=== PATIENT | female | born 1980 | race Caucasian/White ===

== ENCOUNTER 2016-10-26 12:59 | Emergency (ER) | payer OTHER | END 2016-10-26 13:48 | disposition left against medical advice (07) | LOC: DL.ED 12:59 | DX: Z53.21 Procedure and treatment not carried out due to patient leaving prior to being seen by health care provider (principal) ==

== ENCOUNTER 2016-12-30 21:57 | Emergency (ER) | payer OTHER ==
[2016-12-30] MEDS ORDERED: Acetaminophen/HYDROcodone 325-10 MG Tab PO ONE (21:58)
[2016-12-30] MEDS ORDERED: Sodium Chloride 0.9% 1,000 ML IV ONE (22:35)
[2016-12-30] MEDS ORDERED: Ondansetron 4 MG/2 ML SDV IV ONE (22:35)
[2016-12-30] MEDS ORDERED: HYDROmorphone 1 MG/ML Syringe IVPUSH ONE (22:35)
[2016-12-30] MEDS ORDERED: Iopamidol 612 MG/ML 100 ML Bottle IVPUSH ONE (22:37)
--- NOTE | 2016-12-30 22:42 | EDM.PDOC ---
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 Has known cyst since october, pamprin and ibuprofen have usually controlled pain, Pain since 3pm intolerable. Appointment to see Dr. Villagomez on Saturday. Right Lower Abdomen Pain Score (Numeric/FACES): 10 - Related Data Allergies Allergy/AdvReac Type Severity Reaction Status Date / Time honey Allergy Hives Verified 12/30/16 22:02 venom-honey bee Allergy Swelling Verified 12/30/16 22:02 [bee venom (honey bee)] canteloupe Allergy Itching Uncoded 12/30/16 22:02 Home Meds: Home Meds Amitriptyline [Elavil] 25 mg PO BEDTIME 12/30/16 [History] Escitalopram [Lexapro] 20 mg PO DAILY 12/30/16 [History] Past Medical History HEENT History: Reports: None Cardiovascular History: Reports: None Respiratory History: Reports: None Gastrointestinal History: Reports: Other (See Below) Other Gastrointestinal History: "fatty liver" Genitourinary History: Reports: Renal Calculus RIPRAP PLACER History: Reports: Polycystic Ovaries, Musculoskeletal History: Reports: Other (See Below) Other Musculoskeletal History: laceration to left foot with sutures Neurological History: Reports: None Psychiatric History: Reports: Anxiety Endocrine/Metabolic History: Reports: None Hematologic History: Reports: None Immunologic History: Reports: None Oncologic (Cancer) History: Reports: None Dermatologic History: Reports: None - Infectious Disease History Infectious Disease History: Reports: None - Past Surgical History Female Surgical History: Reports: Other (See Below) Social & Family History - Family History Family Medical History: Noncontributory - Tobacco Use Smoking Status *Q: Heavy Tobacco Smoker Years of Tobacco use: 10 Packs/Tins Daily: 1 Used Tobacco, but Quit: Yes Month Tobacco Last Used: october Second Hand Smoke Exposure: Yes - Caffeine Use Caffeine Use: Reports: Coffee, Soda - Alcohol Use Days Per Week of Alcohol Use: 0 - Recreational Drug Use Recreational Drug Use: No - Living Situation & Occupation Living situation: Reports: Single, with Family Occupation: Employed ED ROS GENERAL - Review of Systems Review Of Systems: ROS reveals no pertinent complaints other than HPI. ED EXAM, RENAL/ - Physical Exam Exam: See Below Exam Limited By: No Limitations General Appearance: Alert, Moderate Distress, Obese Eye Exam: Bilateral Eye: EOMI Ears: Normal External Exam Nose: Normal Inspection Throat/Mouth: Normal Inspection Head: Atraumatic, Normocephalic Neck: Normal Inspection, Full Range of Motion Respiratory/Chest: No Respiratory Distress, Lungs Clear, Normal Breath Sounds Cardiovascular: Normal Peripheral Pulses, Regular Rate, Rhythm GI/Abdominal: Soft, Guarding, Tender (RLQ), Abnormal Bowel Sounds (hypoactive). No: Distended Neurological: Alert, Oriented Psychiatric: Normal Affect Skin Exam: Warm, Dry, Intact, Normal Color Course - Vital Signs Last Recorded V/S: Last Vital Signs Temp 97 F 12/30/16 22:03 Pulse 85 12/30/16 23:30 Resp 16 12/30/16 23:30 BP 115/71 12/30/16 23:30 Pulse Ox 100 12/30/16 23:30 - Orders/Labs/Meds Labs: Laboratory Tests 12/30/16 12/30/16 12/30/16 Range/Units 22:33 22:33 22:52 WBC 9.8 (5.0-10.0) 10^3/uL RBC 4.61 (4.2-5.4) 10^6/uL Hgb 13.9 (12.0-16.0) g/dL Hct 42.2 (37.0-47.0) % MCV 91.5 (80-100) fL MCH 30.2 (27.0-34.0) pg MCHC 32.9 L (33.0-35.0) g/dL Plt Count 228 (150-450) 10^3/uL Neut % (Auto) 58.8 (42.2-75.2) % Lymph % (Auto) 26.6 (20.5-50.1) % Pepin % (Auto) 9.3 H (2-8) % Eos % (Auto) 4.8 H (1.0-3.0) % Baso % (Auto) 0.5 (0.0-1.0) % Sodium (135-145) mmol/L Potassium (3.6-5.0) mmol/L Chloride (101-111) mmol/L Carbon Dioxide (21.0-31.0) mmol/L Anion Gap BUN (7-18) mg/dL Creatinine (0.6-1.3) mg/dL Est Cr Clr Drug Dosing mL/min Estimated GFR (MDRD) BUN/Creatinine Ratio Glucose (74-105) mg/dL Calcium (8.4-10.2) mg/dl Total Bilirubin (0.2-1.0) mg/dL AST (10-42) IU/L ALT (10-60) IU/L Alkaline Phosphatase (42-121) IU/L Total Protein (6.7-8.2) g/dl Albumin (3.2-5.5) g/dl Globulin Albumin/Globulin Ratio Urine Color Yellow (YELLOW) Urine Appearance Clear (CLEAR) Urine pH 7.0 (5.0-9.0) Ur Specific [place] 1.015 (1.005-1.030) Urine Protein Negative (NEGATIVE) Urine Glucose (UA) Negative (NEGATIVE) Urine Ketones Negative (NEGATIVE) Urine Occult Blood Negative (NEGATIVE) Urine Nitrite Negative (NEGATIVE) Urine Bilirubin Negative (NEGATIVE) Urine Urobilinogen 0.2 (0.2-1.0) mg/dL Ur Leukocyte Esterase Negative (NEGATIVE) Urine RBC 0-5 /HPF Urine WBC 0-5 (0-5/HPF) /HPF Ur Epithelial Cells Few /HPF Urine Bacteria Occasional (0-FEW/HPF) /HPF Urine HCG, Qual Negative 12/30/16 Range/Units 22:52 WBC (5.0-10.0) 10^3/uL RBC (4.2-5.4) 10^6/uL Hgb (12.0-16.0) g/dL Hct (37.0-47.0) % MCV (80-100) fL MCH (27.0-34.0) pg MCHC (33.0-35.0) g/dL Plt Count (150-450) 10^3/uL Neut % (Auto) (42.2-75.2) % Lymph % (Auto) (20.5-50.1) % Pepin % (Auto) (2-8) % Eos % (Auto) (1.0-3.0) % Baso % (Auto) (0.0-1.0) % Sodium 137 (135-145) mmol/L Potassium 3.6 (3.6-5.0) mmol/L Chloride 103 (101-111) mmol/L Carbon Dioxide 26.0 (21.0-31.0) mmol/L Anion Gap 11.6 BUN 11 (7-18) mg/dL Creatinine 0.6 (0.6-1.3) mg/dL Est Cr Clr Drug Dosing 135.46 mL/min Estimated GFR (MDRD) > 60 BUN/Creatinine Ratio 18.33 Glucose 88 (74-105) mg/dL Calcium 8.8 (8.4-10.2) mg/dl Total Bilirubin 0.5 (0.2-1.0) mg/dL AST 20 (10-42) IU/L ALT 17 (10-60) IU/L Alkaline Phosphatase 54 (42-121) IU/L Total Protein 7.4 (6.7-8.2) g/dl Albumin 4.1 (3.2-5.5) g/dl Globulin 3.3 Albumin/Globulin Ratio 1.24 Urine Color (YELLOW) Urine Appearance (CLEAR) Urine pH (5.0-9.0) Ur Specific [place] (1.005-1.030) Urine Protein (NEGATIVE) Urine Glucose (UA) (NEGATIVE) Urine Ketones (NEGATIVE) Urine Occult Blood (NEGATIVE) Urine Nitrite (NEGATIVE) Urine Bilirubin (NEGATIVE) Urine Urobilinogen (0.2-1.0) mg/dL Ur Leukocyte Esterase (NEGATIVE) Urine RBC /HPF Urine WBC (0-5/HPF) /HPF Ur Epithelial Cells /HPF Urine Bacteria (0-FEW/HPF) /HPF Urine HCG, Qual Meds: Medications Discontinued Medications Generic Name Dose Route Start Last Admin Trade Name Freq PRN Reason Stop Dose Admin Hydrocodone Bitart/Acetaminophen Confirm 12/31/16 00:01 12/31/16 00:09 [place] 325-10 Mg Administered 12/31/16 00:02 Not Given Dose 2 tab .ROUTE .STK-MED ONE Hydrocodone Bitart/Acetaminophen 2 tab 12/30/16 21:58 [place] 325-10 Mg PO 12/30/16 21:59 .STK-MED ONE Hydromorphone HCl 1 mg 12/30/16 22:35 12/30/16 22:55 Dilaudid IVPUSH 12/30/16 22:36 1 mg ONETIME ONE Administration Sodium Chloride 1,000 mls @ 999 mls/hr 12/30/16 22:35 12/30/16 22:54 Normal Saline IV 12/30/16 23:35 999 mls/hr .BOLUS ONE Administration Iopamidol 100 ml 12/30/16 22:37 12/30/16 23:08 Isovue-300 (61%) IVPUSH 12/30/16 22:38 100 ml ONETIME ONE Administration Ondansetron HCl 4 mg 12/30/16 22:35 12/30/16 22:54 Zofran IV 12/30/16 22:36 4 mg ONETIME ONE Administration - Radiology Interpretation Free Text/Narrative:: CT abdomen 3.1 cm right simple ovarian cyst Departure - Departure Time of Disposition: 23:58 Disposition: Home, Self-Care 01 Condition: Fair Clinical Impression: Right ovarian cyst Abdominal pain Qualifiers: Abdominal location: right lower quadrant Qualified Code(s): R10.31 - Right lower quadrant pain - Discharge Information Instructions: Ovarian Cyst Forms: ED Department Discharge Additional Instructions: rest hydrocodone 10/325 one every 6 hours as needed for pain follow up with Dr. Ohara's office in am
[2016-12-30 23:17] LABS: CHLORIDE,CL 103 mmol/L (101-111); SODIUM,NA 137 mmol/L (135-145)
[2016-12-30 23:31] VITALS: BP 115/71
[2016-12-31] MEDS ORDERED: Acetaminophen/HYDROcodone 325-10 MG Tab ONE (00:01)
== END 2016-12-31 00:07 | disposition home or self-care (01) ==
LOC: DL.ED 21:57
DX: N83.201 Unspecified ovarian cyst, right side (principal); R10.31 Right lower quadrant pain; F17.210 Nicotine dependence, cigarettes, uncomplicated; F41.9 Anxiety disorder, unspecified; Z87.442 Personal history of urinary calculi; Z79.899 Other long term (current) drug therapy; Z91.018 Allergy to other foods; Z91.030 Bee allergy status
CPT/HCPCS: 36415; 74177; 80053; 81001; 81025; 85025; 96361; 96374; 96375; 99284; A9270; J1170; J2405; J7030; Q9967

== ENCOUNTER 2019-07-14 12:31 | Emergency (ER) | payer OTHER ==
[2019-07-14] MEDS ORDERED: Sodium Chloride 0.9% 1,000 ML IV ONE (12:33)
[2019-07-14] MEDS ORDERED: Morphine 2 MG/ML Syringe IVPUSH ONE ×2 (12:34→13:00)
[2019-07-14] MEDS ORDERED: Ondansetron 4 MG/2 ML SDV IVPUSH ONE (12:37)
--- NOTE | 2019-07-14 12:49 | EDM.PDOC ---
ED HPI GENERAL MEDICAL PROBLEM - General Chief Complaint: Flank Pain Stated Complaint: UNKNOWN Time Seen by Provider: 07/14/19 12:35 Source of Information: Reports: Patient History Limitations: Reports: No Limitations - History of Present Illness INITIAL COMMENTS - FREE TEXT/NARRATIVE: This 39 yo female patient reports to the ED from the [facility] due to right flank and right abdominal pain with nausea. The patient reports she was passing medications at work this morning at about 0900 when her pain started. The patient reports her pain initially started at a sharp stabbing pain, but now has gone to a more dull ache. The patient reports she currently feels like someone is "punching" her on the right side. The patient reports she has 1/2 of ovary on her right side. The patient has had her appendix removed, her gallbladder removed and has had a hysterectomy. The patient denies any history of kidney stones. The patient's records were faxed to the ED from the [facility]. Onset: Today Onset Date: 07/14/19 Onset Time: 09:00 Duration: Constant Location: Reports: Abdomen (right side of abdomen and right flank) Quality: Reports: Ache, Stabbing Severity: Severe Improves with: Reports: None Worsens with: Reports: None Context: Reports: Other Associated Symptoms: Reports: No Other Symptoms Right Flank Pain Score (Numeric/FACES): 10 - Related Data Allergies Allergy/AdvReac Type Severity Reaction Status Date / Time honey Allergy Hives Verified 12/30/16 22:02 venom-honey bee Allergy Swelling Verified 12/30/16 22:02 [bee venom (honey bee)] canteloupe Allergy Itching Uncoded 12/30/16 22:02 Home Meds: Home Meds Amitriptyline [Elavil] 25 mg PO BEDTIME 12/30/16 [History] Escitalopram [Lexapro] 20 mg PO DAILY 12/30/16 [History] Past Medical History HEENT History: Reports: None Cardiovascular History: Reports: None Respiratory History: Reports: None Gastrointestinal History: Reports: Other (See Below) Other Gastrointestinal History: "fatty liver" Genitourinary History: Reports: Renal Calculus 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: Reports: Polycystic Ovaries, Musculoskeletal History: Reports: Other (See Below) Other Musculoskeletal History: laceration to left foot with sutures Neurological History: Reports: None Psychiatric History: Reports: Anxiety Endocrine/Metabolic History: Reports: None Hematologic History: Reports: None Immunologic History: Reports: None Oncologic (Cancer) History: Reports: None Dermatologic History: Reports: None - Infectious Disease History Infectious Disease History: Reports: None - Past Surgical History Female Surgical History: Reports: Other (See Below) Social & Family History - Family History Family Medical History: Noncontributory - Caffeine Use Caffeine Use: Reports: Coffee, Soda - Living Situation & Occupation Living situation: Reports: Single, with Family Occupation: Employed ED ROS GENERAL - Review of Systems Review Of Systems: Comprehensive ROS is negative, except as noted in HPI. ED EXAM, RENAL/ - Physical Exam Exam: See Below Exam Limited By: No Limitations General Appearance: Alert, WD/WN, Moderate Distress Eye Exam: Bilateral Eye: EOMI, Normal Inspection, PERRL Ears: Normal External Exam, Normal Canal, Hearing Grossly Normal, Normal TMs Nose: Normal Inspection, Normal Mucosa, No Blood Throat/Mouth: Normal Inspection, Normal Lips, Normal Teeth, Normal Gums, Normal Oropharynx, Normal Voice, No Airway Compromise Head: Atraumatic, Normocephalic Neck: Normal Inspection, Supple, Non-Tender, Full Range of Motion Respiratory/Chest: No Respiratory Distress, Lungs Clear, Normal Breath Sounds, No Accessory Muscle Use, Chest Non-Tender GI/Abdominal: Normal Bowel Sounds, No Organomegaly, No Distention, No Abnormal Bruit, No Mass, Pelvis Stable, Tender (right sided) (Female) Exam: Deferred Rectal (Female) Exam: Deferred Back Exam: Normal Inspection, Full Range of Motion, NT Extremities: Normal Inspection, Normal Range of Motion, Non-Tender, Normal Capillary Refill, No Pedal Edema Neurological: Alert, Oriented, CN II-XII Intact, Normal Cognition, Normal Gait, Normal Reflexes, No Motor/Sensory Deficits Psychiatric: Normal Affect, Normal Mood Skin Exam: Warm, Dry, Intact, Normal Color, No Rash Lymphatic: No Adenopathy Course - Vital Signs Last Recorded V/S: Last Vital Signs Temp 36.7 C 07/14/19 12:30 Pulse 74 07/14/19 12:30 Resp 16 07/14/19 12:30 BP 119/77 07/14/19 12:30 Pulse Ox 99 07/14/19 12:30 - Orders/Labs/Meds Orders: Active Orders 24 hr Category Date Time Status Transvaginal Non OB [US] Routine Exams 07/14/19 Taken Labs: Laboratory Tests 07/14/19 07/14/19 07/14/19 Range/Units 12:35 12:40 12:40 WBC 10.7 H (5.0-10.0) 10^3/uL RBC 4.57 (4.2-5.4) 10^6/uL Hgb 12.8 (12.0-16.0) g/dL Hct 38.9 (37.0-47.0) % MCV 85.1 D (80-100) fL MCH 28.0 (27.0-34.0) pg MCHC 32.9 L (33.0-35.0) g/dL Plt Count 260 (150-450) 10^3/uL Neut % (Auto) 62.2 (42.2-75.2) % Lymph % (Auto) 25.9 (20.5-50.1) % [place] % (Auto) 7.7 (2-8) % Eos % (Auto) 3.9 H (1.0-3.0) % Baso % (Auto) 0.3 (0.0-1.0) % Sodium 138 (136-145) mmol/L Potassium 3.9 (3.5-5.1) mmol/L Chloride 100 (98-107) mmol/L Carbon Dioxide 27 (21-32) mmol/L Anion Gap 14.9 H (7-13) mEq/L BUN 11 (7-18) mg/dL Creatinine 0.85 (0.55-1.02) mg/dL Est Cr Clr Drug Dosing 89.64 mL/min Estimated GFR (MDRD) > 60 BUN/Creatinine Ratio 12.9 (No establ ref range) Glucose 83 (74-99) mg/dL Calcium 8.7 (8.5-10.1) mg/dL Total Bilirubin 0.2 (0.2-1.0) mg/dL AST 18 (15-37) U/L ALT 33 (14-59) U/L Alkaline Phosphatase 70 (46-116) U/L Total Protein 7.5 (6.4-8.2) g/dL Albumin 3.8 (3.4-5.0) g/dL Globulin 3.7 Albumin/Globulin Ratio 1.0 Urine Color Yellow (YELLOW) Urine Appearance Slightly cloudy (CLEAR) Urine pH 6.5 (5.0-9.0) Ur Specific [place] >= 1.030 (1.005-1.030) Urine Protein Negative (NEGATIVE) Urine Glucose (UA) Negative (NEGATIVE) Urine Ketones Negative (NEGATIVE) Urine Occult Blood Negative (NEGATIVE) Urine Nitrite Negative (NEGATIVE) Urine Bilirubin Negative (NEGATIVE) Urine Urobilinogen 0.2 (0.2-1.0) mg/dL Ur Leukocyte Esterase Negative (NEGATIVE) Meds: Medications Discontinued Medications Generic Name Dose Route Start Last Admin Trade Name Freq PRN Reason Stop Dose Admin Hydromorphone HCl 0.5 mg 07/14/19 13:51 07/14/19 14:00 Dilaudid IVPUSH 07/14/19 13:52 0.5 mg ONETIME ONE Administration Hydromorphone HCl 0.5 mg 07/14/19 16:31 07/14/19 16:37 Dilaudid IVPUSH 07/14/19 16:32 0.5 mg ONETIME ONE Administration Sodium Chloride 1,000 mls @ 999 mls/hr 07/14/19 12:33 07/14/19 12:43 Normal Saline IV 07/14/19 13:33 999 mls/hr .BOLUS ONE Administration Morphine Sulfate 2 mg 07/14/19 12:34 07/14/19 12:45 Morphine IVPUSH 07/14/19 12:35 2 mg ONETIME ONE Administration Morphine Sulfate 2 mg 07/14/19 13:00 07/14/19 13:09 Morphine IVPUSH 07/14/19 13:01 2 mg ONETIME ONE Administration Ondansetron HCl 4 mg 07/14/19 12:37 07/14/19 12:41 Zofran IVPUSH 07/14/19 12:38 4 mg ONETIME ONE Administration - Re-Assessments/Exams Free Text/Narrative Re-Assessment/Exam: 07/14/19 13:00 The patient reports her pain was a 10/10 upon presentation to the ED. After 2 mg of Morphine, the patient rates her pain at a 7/10. An order was placed for an additional dose of Morphine (2 mg) and a CT without contrast. 07/14/19 13:52 The patient was advised of the CT results. The patient reports her pain is now coming up and rates her current pain at a 5/10. An ultrasound was ordered for further evaluation of the patient's symptoms. Departure - Departure Time of Disposition: 16:40 Disposition: Home, Self-Care 01 Condition: Fair Clinical Impression: Abdominal pain Ascites Qualifiers: Ascites type: other type Qualified Code(s): R18.8 - Other ascites - Discharge Information *PRESCRIPTION DRUG MONITORING PROGRAM REVIEWED*: Not Applicable *COPY OF PRESCRIPTION DRUG MONITORING REPORT IN PATIENT SIMON: Not Applicable Instructions: Abdominal Pain, Adult, [id number] Forms: ED Department Discharge Care Plan Goals: The patient was advised of the examination, lab, CT and ultrasound results during the visit. Dr. Vazquez was advised of these results and treatments during the patient's visit in the ED. Dr. Vazquez will follow-up with establishing a referral for the patient for continued evaluation and further management. The patient will be contacted for a follow-up appointment. If the patient has any additional symptoms or concerns, the patient should either return to the emergency department or visit her primary care facility. Sepsis Event Note - Focused Exam Vital Signs: Vital Signs Temp Pulse Resp BP Pulse Ox 07/14/19 12:30 36.7 C 74 16 119/77 99 Date Exam was Performed: 07/14/19 Time Exam was Performed: 16:40 - My Orders Last 24 Hours: My Active Orders 07/14/19 Transvaginal Non OB [US] Routine - Assessment/Plan Last 24 Hours: My Active Orders 07/14/19 Transvaginal Non OB [US] Routine
[2019-07-14 12:54] VITALS: BP 119/77; PULSE 74
[2019-07-14 13:06] LABS: ANION GAP 14.9 mEq/L (7-13); CHLORIDE,CL 100 mmol/L (98-107); SODIUM,NA 138 mmol/L (136-145)
[2019-07-14] MEDS ORDERED: HYDROmorphone 0.5 MG/0.5 ML Syringe IVPUSH ONE ×2 (13:51→16:31)
--- NOTE | 2019-07-14 13:57 | CT ---
EXAMINATION: Abdomen Pelvis wo Cont SEX: Female AGE: 39 years CLINICAL HISTORY: 39 year-old 210 pound female smoker who has had previous hysterectomy (partial right oophorectomy), appendectomy, and cholecystectomy. RIGHT FLANK AND RLQ PAIN. No hematuria. WBC 10,700. Scan technique: Volume acquisition of data from the abdomen and pelvis obtained without oral or IV contrast (renal stone protocol) while patient was lying supine on the Siemens multislice scanner [place], [place]. All data archived in the PACS system for storage, reformatting and study. Interpretation: 1. Small amount of free fluid in the dependent cul-de-sac, pelvis, posteriorly. Recent cyst rupture? No obvious pelvic adnexal mass lesion. 2. Surgical clips RUQ. Unenhanced liver, stomach, spleen, pancreas and adrenal glands unremarkable. 3. Normal reniform size, axis and configuration. No sign of nephrolithiasis or obstructive uropathy. Symmetrically distended urinary bladder unremarkable. No urinary bladder calculus. 4. No abdominal mass lesion, inflammatory "dirty" peritoneal fat, signs of mechanical bowel obstruction, ascites or free intraperitoneal air. No ventral wall or inguinal hernias. Lumbar spine unremarkable. 5. Lung bases clear. No pericardial effusion. Normal caliber aortoiliac vessels. CONCLUSION: Postoperative changes. Fluid in the pelvis.
--- NOTE | 2019-07-14 15:18 | US ---
EXAMINATION: Pelvis Non OB Ltd SEX: Female AGE: 39 years CLINICAL HISTORY: 39-year-old female with "RLQ pain" and history of previous "hysterectomy"-uterus and left ovary removed but "part of right ovary remains". (Free fluid but no pelvic mass appreciated on CT) INTERPRETATION: 1. Surgically absent uterus. 2. No discrete adnexal mass (ovarian or extraovarian) identified. 3. Large volume of FREE FLUID confirmed in the dependent cul-de-sac. 4. Symmetrically distended normal appearing urinary bladder i.e. no mucosal wall mass or intraluminal stones. CONCLUSION: Ascites. No pelvic mass appreciated sonographically. Normal urinary bladder.
== END 2019-07-14 16:58 | disposition home or self-care (01) ==
LOC: DL.ED 12:31
DX: R18.8 Other ascites (principal); R10.9 Unspecified abdominal pain; F41.9 Anxiety disorder, unspecified; Z91.030 Bee allergy status; Z91.018 Allergy to other foods; Z79.899 Other long term (current) drug therapy
CPT/HCPCS: 36415; 74176; 76830; 76857; 80053; 81003; 85025; 96361; 96374; 96375; 96376; 99284; J1170; J2270; J2405; J7030

== ENCOUNTER 2020-05-13 15:19 | Emergency (ER) | payer BC, OTHER ==
[2020-05-13 15:35] VITALS: BP 107/73; PULSE 95
--- NOTE | 2020-05-13 15:42 | EDM.PDOC ---
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 Pt has history of ovarian cysts with cystectomies, hysterectomy, oophorectomy. Pt has 1/4 of 1 ovary present. Pt states pain is a lso in vaginal area and bladder, no increase in urinary frequency, no burning with urination. Pt rates pain 8/10, stabbing, pressure, cramps. Pt states concerned about possible risk of bladder prolapse. Onset: Sudden Onset Date: 05/11/20 Duration: Getting Worse, Intermittent, Waxing/Waning Location: Reports: Abdomen, Pelvis Quality: Reports: Ache, Sharp, Stabbing Severity: Severe Improves with: Reports: None Worsens with: Reports: None Associated Symptoms: Reports: No Other Symptoms pelvic Pain Score (Numeric/FACES): 8 - Related Data Allergies Allergy/AdvReac Type Severity Reaction Status Date / Time honey Allergy Hives Verified 05/13/20 15:40 venom-honey bee Allergy Swelling Verified 05/13/20 15:40 [bee venom (honey bee)] canteloupe Allergy Itching Uncoded 12/30/16 22:02 Home Meds: Home Meds Ondansetron [Ondansetron ODT] 4 mg PO Q8H PRN 05/13/20 [History] Rizatriptan Benzoate [Rizatriptan] 10 mg PO ASDIRECTED 05/13/20 [History] Sertraline [Zoloft] 50 mg PO DAILY 05/13/20 [History] Past Medical History HEENT History: Reports: None Cardiovascular History: Reports: None Respiratory History: Reports: None Gastrointestinal History: Reports: Other (See Below) Other Gastrointestinal History: "fatty liver" Genitourinary History: Reports: Renal Calculus 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 History: Reports: Polycystic Ovaries, Musculoskeletal History: Reports: Other (See Below) Other Musculoskeletal History: laceration to left foot with sutures Neurological History: Reports: None Psychiatric History: Reports: Anxiety Endocrine/Metabolic History: Reports: None Hematologic History: Reports: None Immunologic History: Reports: None Oncologic (Cancer) History: Reports: None Dermatologic History: Reports: None - Infectious Disease History Infectious Disease History: Reports: None - Past Surgical History Female Surgical History: Reports: Other (See Below) Social & Family History - Family History Family Medical History: No Pertinent Family History - Caffeine Use Caffeine Use: Reports: Coffee, Soda - Living Situation & Occupation Living situation: Reports: Single, with Family Occupation: Employed ED ROS GENERAL - Review of Systems Review Of Systems: Comprehensive ROS is negative, except as noted in HPI. ED EXAM, RENAL/ - Physical Exam Exam: See Below Exam Limited By: No Limitations General Appearance: Alert, WD/WN, No Apparent Distress, Obese Eye Exam: Bilateral Eye: Normal Inspection Nose: Normal Inspection Throat/Mouth: Normal Inspection Head: Atraumatic, Normocephalic Respiratory/Chest: No Respiratory Distress, Lungs Clear, Normal Breath Sounds, No Accessory Muscle Use, Chest Non-Tender Cardiovascular: Regular Rate, Rhythm GI/Abdominal: Normal Bowel Sounds, Soft, No Organomegaly, No Distention, No Abnormal Bruit, No Mass, Tender. No: Guarding, Rigid, Rebound (Female) Exam: Deferred Rectal (Female) Exam: Deferred Back Exam: Normal Inspection. No: CVA Tenderness (L), CVA Tenderness (R) Extremities: Normal Inspection Neurological: Alert, Oriented, No Motor/Sensory Deficits Psychiatric: Normal Mood Skin Exam: Warm, Dry, Intact, Normal Color, No Rash Course - Vital Signs Last Recorded V/S: Last Vital Signs Temp 97.8 F 05/13/20 15:33 Pulse 95 05/13/20 15:33 Resp 20 05/13/20 15:33 BP 107/73 05/13/20 15:33 Pulse Ox 99 05/13/20 15:33 - Orders/Labs/Meds Orders: Active Orders 24 hr Category Date Time Status Peripheral IV Care [RC] . DIRECTED Care 05/13/20 16:00 Active Sodium Chloride 0.9% [Saline Flush] Med 05/13/20 15:59 Active 10 ml FLUSH ASDIRECTED PRN Peripheral IV Insertion Adult [OM.PC] Stat Oth 05/13/20 16:00 Ordered Medication Orders Sodium Chloride (Saline Flush) 10 ml FLUSH ASDIRECTED PRN PRN Reason: Keep Vein Open Last Admin: 05/13/20 16:28 Dose: 10 ml Documented by: MESERET Labs: Laboratory Tests 05/13/20 05/13/20 05/13/20 Range/Units 16:01 16:10 16:10 WBC 8.0 (5.0-10.0) 10^3/uL RBC 4.45 (4.2-5.4) 10^6/uL Hgb 13.4 (12.0-16.0) g/dL Hct 40.7 (37.0-47.0) % MCV 91.5 D (80-100) fL MCH 30.1 (27.0-34.0) pg MCHC 32.9 L (33.0-35.0) g/dL Plt Count 272 (150-450) 10^3/uL Neut % (Auto) 58.9 (42.2-75.2) % Lymph % (Auto) 27.4 (20.5-50.1) % [place] % (Auto) 7.9 (2-8) % Eos % (Auto) 5.3 H (1.0-3.0) % Baso % (Auto) 0.5 (0.0-1.0) % Sodium 138 (136-145) mmol/L Potassium 3.7 (3.5-5.1) mmol/L Chloride 101 (98-107) mmol/L Carbon Dioxide 28 (21-32) mmol/L Anion Gap 12.7 (7-13) mEq/L BUN 12 (7-18) mg/dL Creatinine 0.67 (0.55-1.02) mg/dL Est Cr Clr Drug Dosing 112.59 mL/min Estimated GFR (MDRD) > 60 BUN/Creatinine Ratio 17.9 (No establ ref range) Glucose 87 (74-99) mg/dL Calcium 8.2 L (8.5-10.1) mg/dL Total Bilirubin 0.3 (0.2-1.0) mg/dL AST 11 L (15-37) U/L ALT 27 (14-59) U/L Alkaline Phosphatase 79 (46-116) U/L C-Reactive Protein 0.5 (0.0-0.9) mg/dL Total Protein 7.8 (6.4-8.2) g/dL Albumin 3.8 (3.4-5.0) g/dL Globulin 4.0 Albumin/Globulin Ratio 0.9 Urine Color Yellow (YELLOW) Urine Appearance Cloudy (CLEAR) Urine pH 6.0 (5.0-9.0) Ur Specific [place] >= 1.030 (1.005-1.030) Urine Protein 30 H (NEGATIVE) Urine Glucose (UA) Negative (NEGATIVE) Urine Ketones Negative (NEGATIVE) Urine Occult Blood Negative (NEGATIVE) Urine Nitrite Negative (NEGATIVE) Urine Bilirubin Negative (NEGATIVE) Urine Urobilinogen 0.2 (0.2-1.0) mg/dL Ur Leukocyte Esterase Negative (NEGATIVE) Urine RBC 0-5 /HPF Urine WBC 0-5 (0-5/HPF) /HPF Ur Epithelial Cells Moderate H (NOT SEEN) /HPF Amorphous Sediment Moderate H (NOT SEEN) /HPF Urine Bacteria Few (0-FEW/HPF) /HPF Urine Mucus Moderate H (NOT SEEN) /LPF Meds: Medications Generic Name Dose Route Start Last Admin Trade Name Freq PRN Reason Stop Dose Admin Sodium Chloride 10 ml 05/13/20 15:59 05/13/20 16:28 Saline Flush FLUSH 10 ml ASDIRECTED PRN Administration Keep Vein Open Discontinued Medications Generic Name Dose Route Start Last Admin Trade Name Freq PRN Reason Stop Dose Admin Hydromorphone HCl 0.5 mg 05/13/20 16:02 05/13/20 16:29 Dilaudid IVPUSH 05/13/20 16:03 0.5 mg ONETIME ONE Administration Ketorolac Tromethamine 30 mg 05/13/20 16:01 05/13/20 16:27 Toradol IVPUSH 05/13/20 16:02 30 mg ONETIME ONE Administration - Radiology Interpretation Free Text/Narrative:: [facility] Final Radiology Report Call: [phone] assistance Online chat: [email or web address] Name: NA ALLEN Age: 40Years F Date: 05/13/2020 SSN: -- : [id number] Study: CT ABDOMEN PELVIS WO CONT Requesting Physician: JOSELITO AVILA Images: 451 Addl Studies: Provided Clinical History: RLQ pain radiating to groin Contrast: Without Contrast Medium: Contrast Amount: Contrast Method: Page 1 of 2 PROCEDURE INFORMATION: Exam: CT Abdomen And Pelvis Without Contrast Exam date and time: 05/13/2020 5:02 PM Age: 40 years old Clinical indication: Other: Rlq pain; Additional info: Rlq pain radiating to groin TECHNIQUE: Imaging protocol: Computed tomography of the abdomen and pelvis without contrast. Total images: 451 Radiation optimization: All CT scans at this facility use at least one of these dose optimization techniques: automated exposure control; mA and/or kV adjustment per patient size (includes targeted exams where dose is matched to clinical indication); or iterative reconstruction. COMPARISON: CT Abdomen Pelvis wo Cont 07/14/2019 1:20 PM FINDINGS: Limitations: The lack of IV contrast limits evaluation of the abdominal/pelvic organs. Liver: Presumed surgical clips adjacent to the inferior right lobe of liver again noted. Gallbladder and bile ducts: Status post cholecystectomy. Pancreas: Normal. No ductal dilation. Spleen: Normal. No splenomegaly. Adrenal glands: Normal. No mass. Kidneys and ureters: Normal. No hydronephrosis. Stomach and bowel: Unremarkable. No obstruction. No mucosal thickening. Appendix: No evidence of appendicitis. Intraperitoneal space: Unremarkable. No free air. No significant fluid collection. Vasculature: Unremarkable. No abdominal aortic aneurysm. Lymph nodes: Few scattered nonenlarged retroperitoneal lymph nodes. ALEJANDRONA | Final Radiology Report CONFIDENTIALITY STATEMENT This report is intended only for use by the referring physician, and only in accordance with law. If you received this in error, call [phone]. Page 2 of 2 Urinary bladder: Unremarkable as visualized. Reproductive: Status post hysterectomy. Bones/joints: Unremarkable. No acute fracture. Soft tissues: Very small probable left groin hernia containing fat. Tiny umbilical hernia containing fat. IMPRESSION: No acute process within the abdomen/pelvis. Thank you for allowing us to participate in the care of your patient. Dictated and Authenticated by: Wesly Rosen MD 05/13/2020 5:33 PM Central Time ([place] & [place]) Departure - Departure Time of Disposition: 17:43 Disposition: Home, Self-Care 01 Condition: Good Clinical Impression: Pain in pelvis - Discharge Information *PRESCRIPTION DRUG MONITORING PROGRAM REVIEWED*: No *COPY OF PRESCRIPTION DRUG MONITORING REPORT IN PATIENT SIMON: No Instructions: Pelvic Pain, Female Forms: ED Department Discharge Additional Instructions: Rx: Hydrocodone APAP 5mg/325mg *Do not drive or work while under the influence of this medication. Follow up in clinic next week if not completely improved. Return to ER if worse at any time. Sepsis Event Note (ED) - Evaluation Sepsis Screening Result: No Definite Risk - Focused Exam Vital Signs: Vital Signs Temp Pulse Resp BP Pulse Ox 05/13/20 15:33 97.8 F 95 20 107/73 99 - My Orders Last 24 Hours: My Active Orders 05/13/20 15:59 Sodium Chloride 0.9% [Saline Flush] 10 ml FLUSH ASDIRECTED PRN 05/13/20 16:00 Peripheral IV Care [RC] . DIRECTED Peripheral IV Insertion Adult [OM.PC] Stat - Assessment/Plan Last 24 Hours: My Active Orders 05/13/20 15:59 Sodium Chloride 0.9% [Saline Flush] 10 ml FLUSH ASDIRECTED PRN 05/13/20 16:00 Peripheral IV Care [RC] . DIRECTED Peripheral IV Insertion Adult [OM.PC] Stat
[2020-05-13] MEDS ORDERED: Sodium Chloride 0.9% 10 ML Syringe FLUSH PRN (15:59)
[2020-05-13] MEDS ORDERED: Ketorolac 30 MG/ML SDV IVPUSH ONE (16:01)
[2020-05-13] MEDS ORDERED: HYDROmorphone 0.5 MG/0.5 ML Syringe IVPUSH ONE (16:02)
[2020-05-13 16:33] LABS: ANION GAP 12.7 mEq/L (7-13); CHLORIDE,CL 101 mmol/L (98-107); SODIUM,NA 138 mmol/L (136-145)
--- NOTE | 2020-05-13 17:33 | CT ---
PROCEDURE INFORMATION: Exam: CT Abdomen And Pelvis Without Contrast Exam date and time: 05/13/2020 5:02 PM Age: 40 years old Clinical indication: Other: Rlq pain; Additional info: Rlq pain radiating to groin TECHNIQUE: Imaging protocol: Computed tomography of the abdomen and pelvis without contrast. Total images: 451 Radiation optimization: All CT scans at this facility use at least one of these dose optimization techniques: automated exposure control; mA and/or kV adjustment per patient size (includes targeted exams where dose is matched to clinical indication); or iterative reconstruction. COMPARISON: CT Abdomen Pelvis wo Cont 07/14/2019 1:20 PM FINDINGS: Limitations: The lack of IV contrast limits evaluation of the abdominal/pelvic organs. Liver: Presumed surgical clips adjacent to the inferior right lobe of liver again noted. Gallbladder and bile ducts: Status post cholecystectomy. Pancreas: Normal. No ductal dilation. Spleen: Normal. No splenomegaly. Adrenal glands: Normal. No mass. Kidneys and ureters: Normal. No hydronephrosis. Stomach and bowel: Unremarkable. No obstruction. No mucosal thickening. Appendix: No evidence of appendicitis. Intraperitoneal space: Unremarkable. No free air. No significant fluid collection. Vasculature: Unremarkable. No abdominal aortic aneurysm. Lymph nodes: Few scattered nonenlarged retroperitoneal lymph nodes. Urinary bladder: Unremarkable as visualized. Reproductive: Status post hysterectomy. Bones/joints: Unremarkable. No acute fracture. Soft tissues: Very small probable left groin hernia containing fat. Tiny umbilical hernia containing fat. IMPRESSION: No acute process within the abdomen/pelvis.
== END 2020-05-13 17:59 | disposition home or self-care (01) ==
LOC: DL.ED 15:19
DX: R10.2 Pelvic and perineal pain (principal); Z91.030 Bee allergy status; Z91.018 Allergy to other foods
CPT/HCPCS: 36415; 74176; 80053; 81001; 85025; 86140; 96374; 96375; 99284; J1170; J1885

== ENCOUNTER 2021-02-13 13:12 | Emergency (ER) | payer BC, OTHER ==
[2021-02-13 13:29] VITALS: BP 107/80; PULSE 86
--- NOTE | 2021-02-13 13:36 | EDM.PDOC ---
ED HPI GENERAL MEDICAL PROBLEM - General Chief Complaint: Skin Complaint Stated Complaint: [id number] SHARP PAIN IN LEG/KNEE BUMP Time Seen by Provider: 02/13/21 13:30 Source of Information: Reports: Patient History Limitations: Reports: No Limitations - History of Present Illness INITIAL COMMENTS - FREE TEXT/NARRATIVE: This 40 yo female patient reports to the ED with pain, bruising and swelling just distal to her right lateral knee. 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 Onset: Today Duration: Minutes: Location: Reports: Lower Extremity, Right Quality: Reports: Ache, Dull Severity: Moderate Improves with: Reports: None Worsens with: Reports: None Context: Reports: Other Associated Symptoms: Reports: No Other Symptoms Right Knee Pain Score (Numeric/FACES): 8 - Related Data Allergies Allergy/AdvReac Type Severity Reaction Status Date / Time honey Allergy Hives Verified 02/13/21 13:30 venom-honey bee Allergy Swelling Verified 02/13/21 13:30 [bee venom (honey bee)] canteloupe Allergy Itching Uncoded 02/13/21 13:30 Home Meds: Home Meds Ondansetron [Ondansetron ODT] 4 mg PO Q8H PRN 05/13/20 [History] Rizatriptan Benzoate [Rizatriptan] 10 mg PO ASDIRECTED 05/13/20 [History] Sertraline [Zoloft] 50 mg PO DAILY 05/13/20 [History] Past Medical History HEENT History: Reports: None Cardiovascular History: Reports: None Respiratory History: Reports: None Gastrointestinal History: Reports: Other (See Below) Other Gastrointestinal History: "fatty liver" Genitourinary History: Reports: Renal Calculus 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: Polycystic Ovaries, Musculoskeletal History: Reports: Other (See Below) Other Musculoskeletal History: laceration to left foot with sutures Neurological History: Reports: None Psychiatric History: Reports: Anxiety Endocrine/Metabolic History: Reports: None Hematologic History: Reports: None Immunologic History: Reports: None Oncologic (Cancer) History: Reports: None Dermatologic History: Reports: None - Infectious Disease History Infectious Disease History: Reports: None - Past Surgical History HEENT Surgical History: Reports: None Cardiovascular Surgical History: Reports: None Respiratory Surgical History: Reports: None GI Surgical History: Reports: Appendectomy, Cholecystectomy Female Surgical History: Reports: Other (See Below) Other Female Surgeries/Procedures: salpingo-oopherectomy Musculoskeletal Surgical History: Reports: None Social & Family History - Family History Family Medical History: No Pertinent Family History - Caffeine Use Caffeine Use: Reports: Coffee - Living Situation & Occupation Living situation: Reports: Single, with Family Occupation: Employed ED ROS GENERAL - Review of Systems Review Of Systems: Comprehensive ROS is negative, except as noted in HPI. ED EXAM, SKIN/RASH Exam: See Below Exam Limited By: No Limitations General Appearance: Alert, WD/WN, Mild Distress Eye Exam: Bilateral Eye: EOMI, Normal Inspection, PERRL Ears: Normal External Exam, Normal Canal, Hearing Grossly Normal, Normal TMs Nose: Normal Inspection, Normal Mucosa, No Blood Throat/Mouth: Normal Inspection, Normal Lips, Normal Teeth, Normal Gums, Normal Oropharynx, Normal Voice, No Airway Compromise Head: Atraumatic, Normocephalic Neck: Normal Inspection, Supple, Non-Tender, Full Range of Motion Respiratory/Chest: No Respiratory Distress, Lungs Clear, Normal Breath Sounds, No Accessory Muscle Use, Chest Non-Tender Cardiovascular: Normal Peripheral Pulses, Regular Rate, Rhythm, No Edema, No Gallop, No JVD, No Murmur, No Rub (Female) Exam: Deferred Rectal (Female) Exam: Deferred Extremities: Leg Pain (Right lateral lower leg pain (just distal to the right knee). The area is tender to palpation with bruising and swelling. ) Neurological: Alert, Oriented, CN II-XII Intact, Normal Cognition, Normal Gait, Normal Reflexes, No Motor/Sensory Deficits Psychiatric: Normal Affect, Normal Mood Skin: Warm, Dry, Intact, No Rash Location, Skin: Lower Extremity, Right Characteristics: Other Associated features: Warmth, Tenderness, Swelling. No: Induration, Scaling, Lymphangitis, Inflammation, Crusting, Weeping, Rough Lymphatic: No Adenopathy Course - Vital Signs Last Recorded V/S: Last Vital Signs Temp 98 F 02/13/21 13:24 Pulse 86 02/13/21 13:24 Resp 14 02/13/21 13:24 BP 107/80 02/13/21 13:24 Pulse Ox 97 02/13/21 13:24 - Orders/Labs/Meds Labs: Laboratory Tests 02/13/21 02/13/21 02/13/21 Range/Units 13:39 13:39 13:39 WBC 5.8 (5.0-10.0) 10^3/uL RBC 4.69 (4.2-5.4) 10^6/uL Hgb 14.4 (12.0-16.0) g/dL Hct 43.3 (37.0-47.0) % MCV 92.3 (80-100) fL MCH 30.7 (27.0-34.0) pg MCHC 33.3 (33.0-35.0) g/dL Plt Count 211 (150-450) 10^3/uL Neut % (Auto) 66.6 (42.2-75.2) % Lymph % (Auto) 18.0 L (20.5-50.1) % [place] % (Auto) 10.7 H (2-8) % Eos % (Auto) 4.2 H (1.0-3.0) % Baso % (Auto) 0.5 (0.0-1.0) % D-Dimer, Quantitative < 100 (0-400) ng/mL Sodium 138 (136-145) mmol/L Potassium 3.8 (3.5-5.1) mmol/L Chloride 103 (98-107) mmol/L Carbon Dioxide 29 (21-32) mmol/L Anion Gap 9.8 (7-13) mEq/L BUN 8 (7-18) mg/dL Creatinine 0.70 (0.55-1.02) mg/dL Est Cr Clr Drug Dosing 107.77 mL/min Estimated GFR (MDRD) > 60 BUN/Creatinine Ratio 11.4 (No establ ref range) Glucose 87 (70-99) mg/dL Calcium 8.6 (8.5-10.1) mg/dL Total Bilirubin 0.3 (0.2-1.0) mg/dL AST 17 (15-37) U/L ALT 28 (14-59) U/L Alkaline Phosphatase 74 (46-116) U/L Total Protein 7.8 (6.4-8.2) g/dL Albumin 3.9 (3.4-5.0) g/dL Globulin 3.9 Albumin/Globulin Ratio 1.0 Departure - Departure Time of Disposition: 14:16 Disposition: Home, Self-Care 01 Condition: Fair Clinical Impression: Contusion of right leg Qualifiers: Encounter type: initial encounter Qualified Code(s): S80.11XA - Contusion of right lower leg, initial encounter - Discharge Information *PRESCRIPTION DRUG MONITORING PROGRAM REVIEWED*: Not Applicable *COPY OF PRESCRIPTION DRUG MONITORING REPORT IN PATIENT SIMON: Not Applicable Forms: ED Department Discharge Care Plan Goals: The patient was advised of the examination and lab results during the visit. The patient was encouraged to rest, ice and elevate her extremity over the next 24 hours. If the patient has any additional symptoms or concerns, the patient should either return to the emergency department or visit her primary care facility. Sepsis Event Note (ED) - Evaluation Sepsis Screening Result: No Definite Risk - Focused Exam Vital Signs: Vital Signs Temp Pulse Resp BP Pulse Ox 02/13/21 13:24 98 F 86 14 107/80 97
[2021-02-13 14:05] LABS: ANION GAP 9.8 mEq/L (7-13); CHLORIDE,CL 103 mmol/L (98-107); SODIUM,NA 138 mmol/L (136-145)
== END 2021-02-13 14:22 | disposition home or self-care (01) ==
LOC: DL.ED 13:12
DX: S80.11XA Contusion of right lower leg, initial encounter (principal); Z91.018 Allergy to other foods; Z91.030 Bee allergy status; X58.XXXA Exposure to other specified factors, initial encounter; Y99.0 Civilian activity done for income or pay
CPT/HCPCS: 36415; 80053; 85025; 85379; 99283